=== PATIENT | male | born 2000 | race Hispanic/Latino ===

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

== ENCOUNTER 2021-07-11 19:35 | Emergency (ER) | payer SELFPAY ==
[2021-07-11 20:30] LABS: Absolute Lymphocytes (CBC) 3.8 K/uL (0.7-4.9); Lymphocytes % 38.9 % (15.3-44.8); MPV 7.4 fL (7.6-11.3); RBC Red Blood Cell Count 4.84 M/uL (4.33-5.43)
[2021-07-11 20:54] LABS: ALT/SGPT 31 U/L (12-78); Albumin 4.3 g/dL (3.4-5.0); BUN Blood Urea Nitrogen 19 mg/dL (7-18); Bicarbonate 26 mmol/L (21-32); Glucose Level 118 mg/dL (74-106); Lipase 80 U/L (73-393); Sodium Level 139 mmol/L (136-145)
[2021-07-11 20:55] LABS: Alkaline Phosphatase 88 U/L (45-117); Bilirubin Total 0.2 mg/dL (0.2-1.0); Protein, Total 7.8 g/dL (6.4-8.2)
[2021-07-11 20:57] LABS: AST/SGOT 12 U/L (15-37); Bilirubin Direct < 0.1 mg/dL (0-0.2)
[2021-07-11 21:14] LABS: Urine Blood Negative (Negative); Urine Glucose Negative (Negative); Urine Protein Negative (Negative); Urine Specific Gravity >=1.030 (1.005-1.030)
--- NOTE | 2021-07-11 21:33 | RAD REPORT ---
EXAM DESCRIPTION: CT - Stone Protocol - 07/11/2021 9:18 pm CLINICAL HISTORY: ABD PAIN, flank pain COMPARISON: Abdomen Pelvis W Contrast dated 06/14/2018 TECHNIQUE: Axial 3 mm thick images were obtained without oral or IV contrast. The [id number] span s the entirety of the system including uppermost abdomen and lung bases. All CT scans are performed using dose optimization technique as appropriate and may include automated exposure control or mA/KV adjustment according to patient size. FINDINGS: No hydronephrosis is present and no obstructing ureteral calculi. Faint renal pyramid mine ralization is seen. No suspicious renal masses. Isodense masses and pyelonephritis are not excluded o n a stone protocol CT scan. No significant adrenal finding. No urinary bladder suspicious finding. Imaged portions of the liver, spleen and pancreas show no suspicious findings on non-contrast imaging . Gallbladder is contracted limiting detail. No biliary tree dilatation. Gallstones can be occult on CT imaging. No stomach or small bowel acute finding. No appendicitis is present. Moderate stool volume fills the colon from cecum through descending colon. No wall thickening or edema. Sigmoid colon is tortuous wit h no acute component seen. No hernia, mass or bulky lymphadenopathy noted. No free air, free fluid or inflammatory stranding. No significant bony abnormality. IMPRESSION: Noncontrast CT of the abdomen and pelvis imaging shows no acute or emergent finding. Isodense masses and pyelonephritis are not excluded on stone protocol technique.
--- NOTE | 2021-07-11 22:22 | ER ---
Nurse's Notes [facility] Name: Rj Esquivel Age: 21 yrs Sex: Male : 2000 Arrival Date: 07/11/2021 Time: 19:37 Bed 12 Private MD: Diagnosis: Lower abdominal pain, unspecified;Acute cystitis Presentation: 07/11 19:45 Chief complaint: Patient states: lower abdominal pain x 1 week and has continued to get al4 worse throughout week. denies n/v/d. reports discomfort with urination. Coronavirus screen: Vaccine status: Patient reports being unvaccinated. Ebola Screen: No symptoms or risks identified at this time. Initial Sepsis Screen: Does the patient meet any 2 criteria? No. Patient's initial sepsis screen is negative. Does the patient have a suspected source of infection? No. Patient's initial sepsis screen is negative. Risk Assessment: Do you want to hurt yourself or someone else? Patient reports no desire to harm self or others. Onset of symptoms was July 04, 2021. 19:45 Method Of Arrival: Ambulatory al4 19:45 Acuity: ABHISHEK 3 al4 Triage Assessment: 19:48 General: Appears in no apparent distress. comfortable, Behavior is calm, cooperative. al4 Pain: Complains of pain in right lower quadrant and left lower quadrant Pain currently is 6 out of 10 on a pain scale. Neuro: Level of Consciousness is awake, alert, obeys commands, Oriented to person, place, time, situation. Cardiovascular: Capillary refill < 3 seconds Patient's skin is warm and dry. Respiratory: Airway is patent Respiratory effort is unlabored, Respiratory pattern is regular. GI: Reports lower abdominal pain, Patient currently denies diarrhea, nausea, vomiting. : Reports discomfort with urination. Musculoskeletal: Range of motion: intact in all extremities. Historical: - Allergies: 19:48 Sulfa (Sulfonamide Antibiotics); al4 - PMHx: 19:48 Asthma; al4 - Immunization history:: Adult Immunizations up to date, Client reports having NOT received the Covid vaccine. Flu vaccine is not up to date. - Social history:: Smoking status: Reported history of juuling and/or vaping. Screenin:54 Abuse screen: Denies threats or abuse. Nutritional screening: No deficits noted. st1 Tuberculosis screening: No symptoms or risk factors identified. Fall Risk None identified. No fall in past 12 months (0 pts). No secondary diagnosis (0 pts). IV access (20 points). Ambulatory Aid- None/Bed Rest/Nurse Assist (0 pts). Gait- Normal/Bed Rest/Wheelchair (0 pts) Mental Status- Oriented to own ability (0 pts). Total Adamson Fall Scale indicates No Risk (0-24 pts). Assessment: 19:53 Reassessment: Patient is alert, oriented x 3, equal unlabored respirations, skin st1 warm/dry/pink. See triage note. 19:55 GI: Bowel sounds present X [address]1 22:37 Reassessment: discharge instructions and follow up plans explained by me. patient alert al4 and oriented upon discharge. Vital Signs: 19:45 BP 124 / 78; Pulse 83; Resp 16; Temp 98.2; Pulse Ox 100% ; Weight 58.97 kg; Height 5 al4 ft. 5 in. (165.10 cm); Pain 6/10; 19:45 Body Mass Index 21.63 (58.97 kg, 165.10 cm) al4 ED Course: 19:37 Patient arrived in ED. kc5 19:48 Triage completed. al4 19:48 Arm band placed on left wrist. al4 19:51 Stefanie Meyer, RN is Primary Nurse. st1 19:55 Roque Sanchez MD is Attending Physician. kdr 19:55 Patient has correct armband on for positive identification. Bed in low position. Call st1 light in reach. Side rails up X 1. 20:22 Basic Metabolic Panel Sent. st1 20:22 CBC with Diff Sent. st1 20:22 Hepatic Function Sent. st1 20:22 Lipase Sent. st1 20:24 Inserted saline lock: 20 gauge in right antecubital area, using aseptic technique. st1 21:17 CT Stone Protocol In Process Unspecified. EDMS 21:48 Urine Dipstick-Ancillary Sent. st1 22:36 No provider procedures requiring assistance completed. IV discontinued, intact, al4 bleeding controlled, No redness/swelling at site. Pressure dressing applied. Administered Medications: 21:10 Drug: NS 0.9% 1000 ml Route: IV; Rate: 1 bolus; Site: right antecubital; st1 22:36 Drug: Cipro (ciprofloxacin) 500 mg Route: PO; al4 Outcome: 22:21 Discharge ordered by . kdr 22:36 Discharged to home ambulatory. al4 22:36 Condition: stable 22:36 Discharge instructions given to patient, Instructed on discharge instructions, follow up and referral plans. medication usage, Demonstrated understanding of instructions, follow-up care, medications, Prescriptions given X 1. 22:38 Patient left the ED. al4 Signatures: Dispatcher [employer] EDMS Roque Sanchez MD MD kdr Clark, Kasey kc5 Jadiel Esparza al4 Stefanie Meyer, RN RN st1
--- NOTE | 2021-07-11 22:22 | EDPHYS ---
Physician Documentation [facility] Name: Rj Esquivel Age: 21 yrs Sex: Male : 2000 Arrival Date: 07/11/2021 Time: 19:37 Bed 12 Private MD: ED Physician Roque Sanchez Historical: - Allergies: 07/11 19:48 Sulfa (Sulfonamide Antibiotics); al4 - PMHx: 19:48 Asthma; al4 - Immunization history:: Adult Immunizations up to date, Client reports having NOT received the Covid vaccine. Flu vaccine is not up to date. - Social history:: Smoking status: Reported history of juuling and/or vaping. Vital Signs: 19:45 BP 124 / 78; Pulse 83; Resp 16; Temp 98.2; Pulse Ox 100% ; Weight 58.97 kg; Height 5 al4 ft. 5 in. (165.10 cm); Pain 6/10; 19:45 Body Mass Index 21.63 (58.97 kg, 165.10 cm) al4 MDM: 22:21 [facility] medically screened. [facility] 07/11 19:56 Order name: Basic Metabolic Panel; Complete Time: 21:51 kdr 07/11 19:56 Order name: CBC with Diff; Complete Time: 21:14 kdr 07/11 19:56 Order name: Hepatic Function; Complete Time: 21:51 kdr 07/11 19:56 Order name: Lipase; Complete Time: 21:51 kdr 07/11 21:14 Order name: Urine Dipstick-Ancillary EDIA 07/11 21:14 Order name: Urine Dipstick-Ancillary; Complete Time: 21:51 EDIA 07/11 19:56 Order name: IV Saline Lock; Complete Time: 20:23 kdr 07/11 19:56 Order name: Labs collected and sent; Complete Time: 20:23 kdr 07/11 20:40 Order name: Urine Dipstick-Ancillary (obtain specimen); Complete Time: 21:10 kdr 07/11 20:40 Order name: CT Stone Protocol; Complete Time: 21:51 kdr Administered Medications: 21:10 Drug: NS 0.9% 1000 ml Route: IV; Rate: 1 bolus; Site: right antecubital; st1 22:36 Drug: Cipro (ciprofloxacin) 500 mg Route: PO; al4 Disposition Summary: 07/11/21 22:21 Discharge Ordered Location: Home kdr Problem: new kdr Symptoms: have improved kdr Condition: Stable kdr Diagnosis - Lower abdominal pain, unspecified kdr - Acute cystitis kdr Followup: kdr - With: Private Physician - When: 2 - 3 days - Reason: If symptoms return, Further diagnostic work-up, Recheck today's complaints, Continuance of care, Re-evaluation by your physician Discharge Instructions: - Discharge Summary Sheet kdr - Abdominal Pain, Adult kdr - Interstitial Cystitis kdr Forms: - Medication Reconciliation Form kdr - Thank You Letter kdr - Antibiotic Education kdr Prescriptions: - Cipro 500 mg Oral Tablet - take 1 tablet by ORAL route every 12 hours for 7 days; 14 tablet; Refills: 0, kdr Product Selection Permitted Signatures: Dispatcher [employer] Roque Kilpatrick MD MD kdr Jadiel Esparza al4 Stefanie Meyer, RN RN st1
[2021-07-11] MEDS ORDERED: CIPROFLOXACIN HCL 500 MG TAB ONE (22:38)
[2021-07-12 00:26] VITALS: BP 124/78; TEMP 98.2; O2SAT 100
== END 2021-07-11 22:38 | disposition home or self-care (01) ==
LOC: ER 19:35
DX: N30.00 Acute cystitis without hematuria (principal); Z88.2 Allergy status to sulfonamides
CPT/HCPCS: 36415; 74176; 76377; 80048; 80076; 81003; 83690; 85025; 99284

== ENCOUNTER 2021-09-18 00:51 | Emergency (ER) | payer SELFPAY ==
[2021-09-18 02:25] LABS: Urine Blood Negative (Negative); Urine Glucose Negative (Negative); Urine Protein Negative (Negative)
[2021-09-18 02:26] LABS: Hematocrit 39.9 % (39.6-49.0); Lymphocytes % 40.6 % (15.3-44.8); MPV 7.4 fL (7.6-11.3)
[2021-09-18 02:40] LABS: Potassium 3.5 mmol/L (3.5-5.1); Troponin High Sensitivity 3.8 pg/mL (<58.9)
[2021-09-18 03:19] LABS: Barbiturates NEGATIVE (NEGATIVE); Benzodiazepines NEGATIVE (NEGATIVE); Cocaine NEGATIVE (NEGATIVE); METHAMPHETAM NEGATIVE (NEGATIVE); Methadone NEGATIVE (NEGATIVE); Opiates NEGATIVE (NEGATIVE); Phencyclidine NEGATIVE (NEGATIVE); THC Cannibis POSITIVE (NEGATIVE)
--- NOTE | 2021-09-18 05:30 | EDPHYS ---
Physician Documentation [facility] Name: Rj Esquivel Age: 21 yrs Sex: Male : 2000 Arrival Date: 09/18/2021 Time: 00:55 Bed 2 Private MD: ED Physician Alexandre Domingo HPI: 09/18 02:20 This 21 yrs old Male presents to ER via EMS with complaints of Chest Pain. mh7 02:20 The patient or guardian reports chest pain that is located primarily in the substernal mh7 area. The pain does not radiate. 02:20 Associated signs and symptoms: Pertinent negatives: abdominal pain, cough, diaphoresis, mh7 dizziness, headache, lower extremity pain, lower extremity swelling, lightheadedness, nausea, near syncope, palpitations, recent travel, shortness of breath, syncope, vomiting. The chest pain is described as tightness. Duration: The patient or guardian reports multiple episodes, that are intermittent, that wax and wane, with no pattern. Modifying factors: The symptoms are alleviated by nothing. the symptoms are aggravated by movement, palpation of area. Severity of pain: At its worst the pain was moderate 2 day(s) ago, in the emergency department the pain has improved moderately. Historical: - Allergies: 00:59 Sulfa (Sulfonamide Antibiotics); jb4 - Home Meds: 00:59 None [Active]; jb4 - PMHx: 00:59 Asthma; jb4 - PSHx: 00:59 Right eye; jb4 - Immunization history:: Adult Immunizations not up to date. - Social history:: Smoking status: Patient denies any tobacco usage or history of. Patient uses street drugs, marijuana. ROS: 02:20 Constitutional: Negative for fever, chills, and weight loss, Eyes: Negative for injury, mh7 pain, redness, and discharge, ENT: Negative for injury, pain, and discharge, Neck: Negative for injury, pain, and swelling, Respiratory: Negative for shortness of breath, cough, wheezing, and pleuritic chest pain, Abdomen/GI: Negative for abdominal pain, nausea, vomiting, diarrhea, and constipation, Back: Negative for injury and pain, : Negative for injury, bleeding, discharge, and swelling, MS/Extremity: Negative for injury and deformity, Skin: Negative for injury, rash, and discoloration, Neuro: Negative for headache, weakness, numbness, tingling, and seizure, Psych: Negative for depression, anxiety, suicide ideation, homicidal ideation, and hallucinations, Allergy/Immunology: Negative for hives, rash, and allergies, Endocrine: Negative for neck swelling, polydipsia, polyuria, polyphagia, and marked weight changes, Hematologic/Lymphatic: Negative for swollen nodes, abnormal bleeding, and unusual bruising. Exam: 02:20 Constitutional: This is a well developed, well nourished patient who is awake, alert, mh7 and in no acute distress. Head/Face: Normocephalic, atraumatic. Eyes: Pupils equal round and reactive to light, extra-ocular motions intact. Lids and lashes normal. Conjunctiva and sclera are non-icteric and not injected. Cornea within normal limits. Periorbital areas with no swelling, redness, or edema. Neck: Trachea midline, no thyromegaly or masses palpated, and no cervical lymphadenopathy. Supple, full range of motion without nuchal rigidity, or vertebral point tenderness. No Meningismus. 02:20 Cardiovascular: Regular rate and rhythm with a normal S1 and S2. No gallops, murmurs, or rubs. Normal PMI, no JVD. No pulse deficits. Respiratory: Lungs have equal breath sounds bilaterally, clear to auscultation and percussion. No rales, rhonchi or wheezes noted. No increased work of breathing, no retractions or nasal flaring. Abdomen/GI: Soft, non-tender, with normal bowel sounds. No distension or tympany. No guarding or rebound. No evidence of tenderness throughout. Back: No spinal tenderness. No costovertebral tenderness. Full range of motion. Skin: Warm, dry with normal turgor. Normal color with no rashes, no lesions, and no evidence of cellulitis. MS/ Extremity: Pulses equal, no cyanosis. Neurovascular intact. Full, normal range of motion. Neuro: Awake and alert, GCS 15, oriented to person, place, time, and situation. Cranial nerves II-XII grossly intact. Motor strength 5/5 in all extremities. Sensory grossly intact. Cerebellar exam normal. Normal gait. Psych: Awake, alert, with orientation to person, place and time. Behavior, mood, and affect are within normal limits. 02:20 Chest/axilla: Inspection: normal, Palpation: tenderness, that is moderate, of the mid-sternal area, that totally reproduces the patient's complaints, Axilla: are normal, Lymph nodes: lymphadenopathy is not appreciated. Vital Signs: 00:55 BP 133 / 79; Pulse 69; Resp 18; Temp 99.7(TE); Pulse Ox 99% on R/A; Weight 58.97 kg jb4 (R); Height 5 ft. 5 in. (165.10 cm) (R); Pain 8/10; 01:59 BP 127 / 84; Pulse 88; Resp 18; Pulse Ox 98% on R/A; ll3 04:00 BP 115 / 91; Pulse 69; Resp 20 S; Pulse Ox 97% on R/A; lg3 05:48 BP 124 / 86; Pulse 72; Resp 18 S; Pulse Ox 99% on R/A; lg3 00:55 Body Mass Index 21.63 (58.97 kg, 165.10 cm) jb4 MDM: 05:26 Differential diagnosis: acute myocardial infarction, acute pericarditis, anxiety, chest mh7 wall pain, costochondritis, esophagitis, gastritis, gastroesophageal reflux disease (GERD), myocarditis, pneumonia, pneumothorax. HEART Score: History: Slightly Suspicious (0), ECG: Normal (0), Age: < or = 45 years (0), Risk Factors: No Risk Factors Known (0), Troponin: < or = 1 x Normal Limit (0), Total Score = 0. Data reviewed: vital signs, nurses notes, lab test result(s), cardiac enzymes, CBC, electrolytes, urine drug screen, EKG, radiologic studies, plain films. Data interpreted: Pulse oximetry: on room air is 97 %. Interpretation: normal. Counseling: I had a detailed discussion with the patient and/or guardian regarding: the historical points, exam findings, and any diagnostic results supporting the discharge/admit diagnosis, lab results, radiology results, the need for outpatient follow up, to return to the emergency department if symptoms worsen or persist or if there are any questions or concerns that arise at home. Response to treatment: the patient's symptoms have resolved after treatment, the patient's blood pressure is in an acceptable range, mental status has returned to baseline, the patient no longer shows bradycardia, the patient is not short of breath, the patient is not tachycardic, the patient's pain is gone, the patient's temperature has normalized. 05:[address] [facility] 09/18 01:37 Order name: Basic Metabolic Panel; Complete Time: 04:11 3 09/18 01:37 Order name: CBC with Diff; Complete Time: 04:11 [facility] 09/18 01:37 Order name: Troponin HS; Complete Time: 04:11 [facility] 09/18 01:37 Order name: XRAY Chest (1 view) [facility] 09/18 02:15 Order name: Urine Drug Screen; Complete Time: 04:11 [facility] 09/18 02:25 Order name: Urine Dipstick-Ancillary; Complete Time: 04:11 [facility] 09/18 01:37 Order name: EKG; Complete Time: 01:37 3 09/18 01:37 Order name: Cardiac monitoring; Complete Time: 01:37 [facility] 09/18 01:37 Order name: EKG - Nurse/Tech; Complete Time: 01:37 [facility] 09/18 01:37 Order name: IV Saline Lock; Complete Time: : 3 09/18 01:37 Order name: Labs collected and sent; Complete Time: : 09/18 01:37 Order name: O2 Per Protocol; Complete Time: 01:37 09/18 01:37 Order name: O2 Sat Monitoring; Complete Time: 01:37 [facility] 09/18 02:15 Order name: Urine Dipstick-Ancillary (obtain specimen); Complete Time: 02:25 lg3 Administered Medications: No medications were administered Disposition Summary: 09/18/21 05:29 Discharge Ordered Location: Home [facility] Problem: new [facility] Symptoms: have improved [facility] Condition: Stable [facility] Diagnosis - Chest pain, unspecified 7 - Cannabis abuse [facility] Followup: [facility] - With: Private Physician - When: 1 - 2 days - Reason: Worsening of condition, Recheck today's complaints, Continuance of care, Re-evaluation by your physician Discharge Instructions: - Discharge Summary Sheet 7 - Cannabis Use Disorder 7 - Nonspecific Chest Pain, Adult, [id number] [facility] Forms: - Medication Reconciliation Form 7 - Thank You Letter 7 - Antibiotic Education 7 - Prescription Opioid Use [facility] Signatures: Dispatcher [employer] EDGreg Chase, RN RN jb4 Jamila Austin RN RN lg3 Alexandre Domingo MD MD mh7
--- NOTE | 2021-09-18 05:30 | ER ---
Nurse's Notes [facility] Name: Rj Esquivel Age: 21 yrs Sex: Male : 2000 Arrival Date: 09/18/2021 Time: 00:55 Bed 2 Private MD: Diagnosis: Chest pain, unspecified;Cannabis abuse Presentation: 09/18 00:55 Chief complaint: Patient states: Pain started 3 days ago. It feels like a tightness in jb4 my chest. Gets worse when I move. EMS states: Pt reports chest pain for the past 3 days. Tonight is the worst. Gets worse with movement. Admits to marijuana use within the last 24hrs. Coronavirus screen: At this time, the client does not indicate any symptoms associated with coronavirus-19. Ebola Screen: No symptoms or risks identified at this time. Initial Sepsis Screen: Does the patient meet any 2 criteria? No. Patient's initial sepsis screen is negative. Does the patient have a suspected source of infection? No. Patient's initial sepsis screen is negative. Risk Assessment: Do you want to hurt yourself or someone else? Patient reports no desire to harm self or others. Onset of symptoms was September 15, 2021. Transition of care: patient was not received from another setting of care. 00:55 Method Of Arrival: EMS: [facility] jb4 00:55 Acuity: ABHISHEK 3 jb4 Historical: - Allergies: 00:59 Sulfa (Sulfonamide Antibiotics); jb4 - Home Meds: 00:59 None [Active]; jb4 - PMHx: 00:59 Asthma; jb4 - PSHx: 00:59 Right eye; jb4 - Immunization history:: Adult Immunizations not up to date. - Social history:: Smoking status: Patient denies any tobacco usage or history of. Patient uses street drugs, marijuana. Screenin:49 Abuse screen: Denies threats or abuse. Denies injuries from another. Nutritional lg3 screening: No deficits noted. Tuberculosis screening: No symptoms or risk factors identified. Fall Risk None identified. Assessment: 02:11 General: Appears in no apparent distress. comfortable, Behavior is calm, cooperative. lg3 Pain: Complains of pain in chest. Neuro: No deficits noted. Patrick Agitation-Sedation Scale (RASS): 0 - Alert and Calm Level of Consciousness is awake, alert, obeys commands, Oriented to person, place, time, situation. Cardiovascular: Reports chest pain, Denies shortness of breath, Capillary refill < 3 seconds Clubbing of nail beds is absent JVD is absent Patient's skin is warm and dry. Respiratory: No deficits noted. Airway is patent Trachea midline Respiratory effort is even, unlabored, Respiratory pattern is regular, symmetrical. GI: No deficits noted. No signs and/or symptoms were reported involving the gastrointestinal system. : No deficits noted. No signs and/or symptoms were reported regarding the genitourinary system. EENT: No deficits noted. No signs and/or symptoms were reported regarding the EENT system. Derm: No deficits noted. No signs and/or symptoms reported regarding the dermatologic system. Skin is intact, is healthy with good turgor, Skin is dry, Skin is pink, warm \T\ dry. Musculoskeletal: No deficits noted. No signs and/or symptoms reported regarding the musculoskeletal system. Circulation, motion, and sensation intact. Capillary refill < 3 seconds, Range of motion: intact in all extremities. 04:00 Reassessment: Patient appears in no apparent distress at this time. No changes from lg3 previously documented assessment. Patient and/or family updated on plan of care and expected duration. Pain level reassessed. Patient is alert, oriented x 3, equal unlabored respirations, skin warm/dry/pink. 05:48 Reassessment: Patient appears in no apparent distress at this time. No changes from lg3 previously documented assessment. Patient and/or family updated on plan of care and expected duration. Pain level reassessed. Patient is alert, oriented x 3, equal unlabored respirations, skin warm/dry/pink. Patient states feeling better. Patient states symptoms have improved. Vital Signs: 00:55 BP 133 / 79; Pulse 69; Resp 18; Temp 99.7(TE); Pulse Ox 99% on R/A; Weight 58.97 kg jb4 (R); Height 5 ft. 5 in. (165.10 cm) (R); Pain 8/10; 01:59 BP 127 / 84; Pulse 88; Resp 18; Pulse Ox 98% on R/A; ll3 04:00 BP 115 / 91; Pulse 69; Resp 20 S; Pulse Ox 97% on R/A; lg3 05:48 BP 124 / 86; Pulse 72; Resp 18 S; Pulse Ox 99% on R/A; lg3 00:55 Body Mass Index 21.63 (58.97 kg, 165.10 cm) jb4 ED Course: 00:55 Patient arrived in ED. jb4 00:58 Triage completed. jb4 00:59 Arm band placed on right wrist. jb4 01:15 Jamila Austin, RN is Primary Nurse. lg3 01:50 Alexandre Domingo MD is Attending Physician. 7 01:52 Bed in low position. Call light in reach. Side rails up X2. 01:52 Inserted saline lock: 20 gauge in right antecubital area, using aseptic technique. Blood collected. 01:52 Basic Metabolic Panel Sent. lg3 01:53 CBC with Diff Sent. lg3 01:53 Troponin HS Sent. lg3 02:25 Urine Drug Screen Sent. lg3 04:14 XRAY Chest (1 view) In Process Unspecified. EDMS 05:49 No provider procedures requiring assistance completed. IV discontinued, intact, lg3 bleeding controlled, No redness/swelling at site. Pressure dressing applied. Administered Medications: No medications were administered Outcome: 05:29 Discharge ordered by . [facility] 05:49 Discharged to home ambulatory. lg3 05:49 Condition: stable 05:49 Discharge instructions given to patient, Instructed on discharge instructions, Demonstrated understanding of instructions. 05:50 Patient left the ED. lg3 Signatures: Dispatcher [employer] EDMS Greg Santacruz RN RN jb4 Jamila Austin, RN RN lg3 Aleaxndre Domingo MD MD [facility] Shayy Draper Sanjay Magana RN RN ll3
[2021-09-18 06:01] VITALS: TEMP 99.7
[2021-09-18 06:06] VITALS: BP 124/86; O2SAT 99
--- NOTE | 2021-09-18 10:03 | EKG ---
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
--- NOTE | 2021-09-18 13:56 | RAD REPORT ---
EXAM DESCRIPTION: RAD - Chest Single View - 09/18/2021 4:12 am CLINICAL HISTORY: CHEST PAIN COMPARISON: None. TECHNIQUE: XR CHEST 1 VIEW 09/18/2021 1:37 AM CDT FINDINGS: Cardiac silhouette is normal in size. Lungs are clear without consolidation, atelectasis, mass or edema. There is no pleural effusion. There is no pneumothorax. There are no acute osseous fin dings. IMPRESSION: Clear lungs. Electronically signed by: Rom Banks MD 09/18/2021 4:59 AM CDT Due to temporary technical issues with the PACS/Fluency reporting system, reports are being signed by the in house radiologist without review as a courtesy to ensure prompt reporting. The interpreting r adiologist is fully responsible for the content of the report.
== END 2021-09-18 05:50 | disposition home or self-care (01) ==
LOC: ER 00:51
DX: R07.9 Chest pain, unspecified (principal); F12.10 Cannabis abuse, uncomplicated; Z88.2 Allergy status to sulfonamides; J45.909 Unspecified asthma, uncomplicated
CPT/HCPCS: 36415; 71045; 80048; 80307; 81003; 84484; 85025; 93005; 99284